=== PATIENT | male | born 1950 | race Caucasian/White ===

== ENCOUNTER 2017-01-14 03:01 | Observation (INO) | payer MEDICARE, OTHER ==
[~2017-01-14] VITALS: Ht 177.8 cm; Wt 97.7 kg
[2017-01-14] VITALS (11 sets, daily range): BP systolic 101–131; BP diastolic 52–78; PULSE 57–62; RESP 14–21; O2SAT 95–99
[~2017-01-14 03:01] MED LIST: ALBU8.5H4 IH; ASPI81TA2 PO; Imitrex PO; MULT-64 PO; VYTORIN PO
--- NOTE | 2017-01-14 03:02 | ED.REPORT ---
HPI-Chest Pain 40 and Over Date of Service Jan 14, 2017 ED Provider: Arnulfo Mckinney MD A 66 year old male with a medical history including CAD, hypertension, polymyalgia rheumatica, and hyperlipidemia s/p porcine aortic valve replacement two years ago presents to the ED via EMS with substernal chest pain onset just prior to arrival, waking him from sleep. The pain is constant with radiation to his back. The patient also reports diaphoresis and shortness of breath. The pain is not pleuritic, it is not positional. He denies nausea or vomiting. EMS found the patient with normal vital signs and administered 50 fentanyl, Nitro x1 , and ASA en route, with complete relief. However, the pain has returned in the ED. He has never had similar symptoms in the past. Nursing Notes Stated Complaint: CHEST PAIN Nursing Notes Reviewed: Yes Allergies: Coded Allergies: No Known Allergies (Unverified Allergy, 12/02/11) Scheduled Aspirin (Aspirin) 81 Mg Tablet 81 MG PO DAILY Atorvastatin (Lipitor) 40 Mg Tablet 40 MG PO DAILY Metoprolol Succinate ER (Metoprolol Succinate ER) 50 Mg Tab.er.24h 50 MG PO DAILY Multivitamin (Multi Vitamin Daily) 1 Each Tablet 1 EACH PO DAILY PredniSONE (PredniSONE) 1 Mg Tab 4 MG PO DAILY Prednisone (PredniSONE) 5 Mg Tab 5 MG PO DAILY Scheduled PRN ([Imitrex]) 1 TAB PO DAILY PRN PRN Miscellaneous Medications Prednisolone Acetate (Prednisolone Acetate) 5 Ml Drops.susp 5 ML OP General Time Seen by MD: 03:01 Chief Complaint Chest pain Hx Obtained From: Patient, EMS Arrived By: Ambulance Sudden in Onset?: Yes Onset Occurred: Just prior to arrival Context of Onset: Sleeping Symptom Duration: Since onset Location: : Chest left: Chest right Quality: Painful Radiation: : Back Severity: Current: Moderate Severity: Maximum: Moderate Associated with: Reports: Diaphoresis, Shortness of Breath, Denies: Fever, Nausea, Vomiting Relieved by: Nitroglycerin - EMS x 1, Prescription meds (Fentanyl and ASA) Context Related History: Reports: Acute coronary syndrome, Anxiety disorder, Heart valve replaced, Hypertension Recent Healthcare: No recent doctor visit Similar Sx Previous: No Past Medical History Past Medical History CAD Hypertension Hyperlipidemia Polymyalgia rheumatica Obstructive sleep apnea Occasional bronchospasm and asthma Anxiety Chronic back pain Tinnitus, chronic Past Surgical History Aortic valve replacement Smoking History Unknown if Ever Smoker Social History Other Social History: Ambulatory Status Independent Review of Systems Constitutional: Denies: Fever Respiratory: Reports: Shortness of breath Cardiovascular: Reports: Chest pain (Substernal) GI: Denies: Nausea, Vomiting Musculoskeletal: Reports: Back pain Skin: Reports Diaphoresis Complete sys rev & neg: except as marked. Physical Exam Initial Vital Signs Vital Signs (First) Date Time Temp Pulse Resp B/P Pulse Ox O2 Delivery O2 Flow Rate FiO2 01/14/17 03:09 36.4 60 20 112/70 95 Room Air Initial VS: Reviewed Head / Eyes: Atraumatic, Normocephalic ENT: Conjunctiva normal, No scleral icterus Extremities: Vascular intact, Neuro intact, No swelling Skin: Warm, Dry, No cyanosis Neurologic: Alert, Oriented, Nonfocal Psychiatric: Mood/affect normal, Behavior normal, Normal thought content General/Constitutional: Awake, Alert, No acute distress Respiratory / Chest: Breath sounds NL, Breath sounds = bilat, No respiratory distress Cardiovascular: Heart rate NL, Regular rhythm, Heart sounds NL No audible click Abdomen: Soft, Non-tender Neck: Supple, Full range of motion, No JVD Interpretation & Diagnostics Lab Results Interpretation Result Diagram: 01/14/17 0302 01/14/17 0302 Test 01/14/17 03:02 01/14/17 03:30 White Blood Count 7.6th/mm3 (3.8-10.1) Red Blood Count 4.51mil/mm3 (4.40-5.80) Hemoglobin 14.9g/dL (13.8-17.2) Hematocrit 41.6% (41.0-50.0) Mean Corpuscular Volume 92.2fL (81-100) Mean Corpuscular Hemoglobin 33.0pg (27.0-35.0) Mean Corpuscular Hemoglobin Concent 35.8% (32.0-37.0) Red Cell Distribution Width 12.1% (12.3-15.4) Platelet Count 169bil/L (150-400) Neutrophils (%) (Auto) 45.5% (40-74) Lymphocytes (%) (Auto) 42.0% (14-46) Monocytes (%) (Auto) 9.5% (4-12) Eosinophils (%) (Auto) 2.4% (0-5) Basophils (%) (Auto) 0.3% (0-3) Hold Purple Top Tube Received (Received) Prothrombin Time 10.7sec (8.1-12.5) Prothromb Time International Ratio 1.00ratio Activated Partial Thromboplast Time 21.5sec (22.8-33.0) Hold Blue Top Tube Received (Received) Sodium Level 142mEq/L (134-144) Potassium Level 3.7mEq/L (3.5-5.2) Chloride Level 100mEq/L (97-108) Carbon Dioxide Level 26mmol/L (18-29) Blood Urea Nitrogen 17mg/dL (8-27) Creatinine 1.19mg/dL (0.76-1.27) Estimat Glomerular Filtration Rate 65mL/min (>59) Glucose Level 125mg/dL (60-99) Calcium Level 9.0mg/dL (8.5-10.1) Magnesium Level 2.1mg/dL (1.6-2.6) Total Bilirubin 1.8mg/dL (0.0-1.2) Aspartate Amino Transf (AST/SGOT) 45U/L (0-50) Alanine Aminotransferase (ALT/SGPT) 37U/L (0-44) Alkaline Phosphatase 42U/L (25-160) Troponin T 0.010ug/L (0.0-0.011) Pro-B-Type Natriuretic Peptide 304.6pg/mL (0-376) Total Protein 6.9g/dL (6.4-8.4) Albumin 4.0g/dL (3.4-5.0) Hold Red Top Tube Received (Received) Hold Ringold Top Tube Received (Received) Digoxin Level 0.3nG/mL (0.9-2.0) Lipase 13U/L (13-60) ECG Interpretation ECG Interpretation: Atrial-ventricular dual-paced complexes rate 64 Time: 03:07 Interpreted by: ED physician X-Ray Chest Interpretation Chest Xray Interpretation: Nothing acute View: Portable, 1 view Interpretation / Wet Read by: Wet read ED physician Re-Eval/Medical Decision Med Decision/Clinical Course 66-year-old presents with a sharp central chest pain and epigastric pain radiating through to his back. He has cardiac history and is admitted for completion of rule out protocol. He also has some elevation of his bilirubin without other explanation and without associated other abnormalities. We will obtain ultrasounds morning. Admitted now for completion of rule out an ultrasound this morning. Pain free at time of transfer to the floor. Cardiac heparin begun. Required IV nitroglycerin initially for control of his pain, along with frequent dosing of morphine. He was switched over to Nitropaste prior to transfer to the floor. His vitals have remained stable. He remains pain-free. Source of Hx: Old records Time of Eval: 05:00 Patient Status: Condition improved Re-Evaluation/Progress Note: Patient rechecked. Discussed with patient x-ray and lab results, diagnosis, and plan for admit. Patient agrees with plan for care and all questions were addressed. Consultation : Referral / Consult Name: Domo Benjamin MD Consulted With: Hospitalist Call Returned at: 05:15 Shoe Dresser: Agrees with eval, Agrees with plan, Accepts admit Counseled Regarding: Diagnosis, Lab results, Need for admission Discharge & Departure Shift Change Sign-Out Response to Therapy: Improved Primary Impression: Chest pain Chest pain type: precordial chest pain Qualified Code: R07.2 - Precordial pain Additional Impression: Hyperbilirubinemia Disposition: ADMITTED TO HOSPITAL Discharge Condition All VS Reviewed: Yes Condition: Improved Referrals: Luis Singh MD (PCP) Crit Care Except Billable Proc Time Spent: 30-74 minutes (thirty minutes) Services Performed: Patient management by me, Time spent at bedside, Reviewing test results, Reviewing imaging, Discussing patient care, Documentation in record, Time with fam/surrogate Scribe Attestation Portions of this note were transcribed by Yael Banuelos. I, Dr. Mckinney, personally performed the history, physical exam, and medical decision-making; I reviewed and confirmed the accuracy of the information in the transcribed note. Signed by: Erik Sherman, 01/14/2017, 05:59 copies to: Luis Singh MD, Christopher W MD Jan 14, 2017 03:02 YAEL BANUELOS Jan 14, 2017 03:26
[2017-01-14] MEDS ORDERED: Nitroglycerin 50 mg/250 mL D5W 50,000 MCG in IV Premix 1 EACH IV ONE (03:14)
[2017-01-14] MEDS ORDERED: 0.9% Sodium Chloride 1,000 ML IV ONE (03:14)
[2017-01-14] MEDS ORDERED: Pantoprazole 4 mg/mL 10 mL Inj IVPUSH ONE (03:15)
[2017-01-14] MEDS ORDERED: Ondansetron 2 mg/mL 2 mL Inj IVPUSH ONE (03:15)
[2017-01-14 03:23] LABS: BASOPHILS % (AUTO) 0.3 % (0-3); EOSINOPHILS % (AUTO) 2.4 % (0-5); MONOCYTES % (AUTO) 9.5 % (4-12); Mean Corpuscular Volume 92.2 fL (81-100); NEUTROPHILS % (AUTO) 45.5 % (40-74); Platelet Count 169 bil/L (150-400)
[2017-01-14 03:51] LABS: Magnesium 2.1 mg/dL (1.6-2.6); TROPONIN T 0.01 ug/L (0.0-0.011)
[2017-01-14] MEDS ORDERED: Heparin 25K Unit/500mL 0.45 NS 25,000 UNIT in IV Premix 1 EACH IV ONE (05:00)
[2017-01-14] MEDS ORDERED: Nitroglycerin 2% 1 Gm Ointment TOPICAL SCH (05:00)
[2017-01-14] MEDS ORDERED: Heparin 5,000 Unit/mL Inj IVPUSH ONE (05:00)
[2017-01-14] MEDS ORDERED: METO-272 PO (05:07)
[2017-01-14] MEDS ORDERED: ASPI-973 PO (05:11)
[2017-01-14] MEDS ORDERED: LIP40 PO (05:11)
[2017-01-14] MEDS ORDERED: PRD1T PO (05:11)
[2017-01-14] MEDS ORDERED: PRD5T PO (05:11)
[2017-01-14] MEDS ORDERED: PRED5DRO6 OP (05:12)
[2017-01-14] MEDS ORDERED: MULT-1018 PO (05:12)
[2017-01-14] MEDS ORDERED: Heparin 5,000 Unit/mL Inj IVPUSH PRN (06:15)
[2017-01-14] MEDS ORDERED: Alum-Mag Hydrox-Simeth 30 mL Suspension PO PRN (06:15)
[2017-01-14] MEDS ORDERED: Ondansetron 2 mg/mL 2 mL Inj IVPUSH PRN (06:15)
[2017-01-14] MEDS ORDERED: Heparin 25K Unit/500mL 0.45 NS 25,000 UNIT in IV Premix 1 EACH IV SCH (06:15)
--- NOTE | 2017-01-14 07:09 | NUR ---
Admit Pt arrived to PCC room 2027 at approx. 0630 from ED via bed; report received from Darcy Arango RN. VSS, tele paced 60s; pt denies pain, dyspnea, or nausea. Heparin gtt initiated at 1000units/hr per cardiac protocol.
[2017-01-14] MEDS ORDERED: IMI25 PO (07:50)
[2017-01-14] MEDS ORDERED: ACET325T51 PO (07:50)
[2017-01-14] MEDS: predniSONE 5 mg Tablet PO SCH (10:03)
[2017-01-14] MEDS: MeTOProlol XL 50 mg ER24 Tablet PO SCH (10:03)
[2017-01-14] MEDS: predniSONE 1 mg Tablet PO SCH (10:03)
--- NOTE | 2017-01-14 10:14 | DRSVH ---
PROCEDURE: X-RAY CHEST ONE VIEW, PORTABLE ([id number]) INDICATIONS: cp TECHNIQUE: One view of the chest was acquired. COMPARISON: [facility], CR, CHEST 1VW (PORTABLE), 02/15/2016, 18:56. [facility], CR, CHEST 2VW, 12/02/2011, 17:25. FINDINGS: Surgical changes and devices: Stable positioning of dual chamber left cardiac pacemaker. Post median sternotomy. Lungs and pleura: No pleural effusions or pneumothorax. Lungs are clear. Mediastinum: Mediastinal contours appear normal. Heart size is normal. Bones and chest wall: No suspicious bony lesions. Overlying soft tissues appear unremarkable. IMPRESSION: No acute cardiopulmonary disease. Dictated by: Juan Francisco Sorensen Ayanna Interpreted: Jose Luis Ruiz MD on 01/14/2017 at 10:13 Transcribed by: EL on 01/14/2017 at 10:13 Approved by: Jose Luis Ruiz M.D. on 01/14/2017 at 17:46
[2017-01-14] MEDS ORDERED: Pantoprazole 40 mg ER24 Tablet PO ONE (10:40)
--- NOTE | 2017-01-14 10:58 | NUR ---
Case Management: LASHAE delivered and explained. Signed original placed in chart. Copy left at bedside. Jadyn Fletcher RN
[2017-01-14 13:14] LABS: APPEARANCE,URINE HAZY (CLEAR,HAZY); COLOR,URINE YELLOW (YELLOW)
[2017-01-14 13:16] LABS: OCCULT BLOOD,URINE NEGATIVE (NEGATIVE); UROBILINOGEN,URINE NORMAL (NORMAL)
--- NOTE | 2017-01-14 13:39 | PCM.HPMED ---
Subjective Date of Service Jan 14, 2017 Primary Provider: Admitting Physician: Domo Benjamin MD Primary Care Physician: Lakshmi Attending Physician: Domo Benjamin MD Admit Status: From the Emergency Department, Admit to [facility] Team Chief Complaint: 66-year-old man with history of coronary artery disease presents with acute chest pain History of Present Illness: Mr. Everett has been in his usual state of health until awakening at approximately 2 AM on the morning of admission. He was awakened by severe midsternal chest pressure with radiation to the back. The pain was continuous, lasting 1.5 hours until relieved by morphine in the emergency department. This was associated with dyspnea and diaphoresis, but no nausea vomiting. There is no radiating pattern there is no exacerbating or palliating factor, other than morphine administered in the emergency department. It has not recurred since the initial episode, now approximately 8 hours later. He has had no antecedent medical problems recently. States that he has been slightly more tired than usual over the past week. Nitroglycerin was not effective. He received 324 mg aspirin. He received nitroglycerin drip and clopidogrel loading. He was placed on heparin. Patient has a history of coronary artery disease, managed by Dr. Bigg Neves at [facility]. The patient and are not able to recall clear details of his cardiac history. He had acute coronary syndrome approximately 3- 4 years ago, resulting in RCA stent placement on vacation in [place]. The patient recalls that his discomfort at that time was an upper sternum chest discomfort with radiation to the neck. 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 There is no CABG at this time. According to Dr. Neves had relief of symptoms after this procedure. Recently he is able to walk at a moderate pace and does so on a near daily basis. He has had no exertional symptoms recently. He has been compliant with medications recently. Review of Systems: Complete 10 system review of systems performed. Significant findings are noted above. He experiences only rare heartburn or GERD, which does not feel like the current complaint. Allergies Coded Allergies: No Known Allergies (Unverified Allergy, Unknown, 01/14/17) Home Medications Aspirin 81 mg per day Atorvastatin 40 mg per day Metoprolol succinate 50 mg per day Prednisone 9 mg per day Sumatriptan when necessary Vitamins. PMH # Coronary artery disease as per history of present illness # Polymyalgia rheumatica - chronic prednisone dosing less than 10 mg per day # Heart block, status post AV pacemaker placement # Obstructive sleep apnea Surgical History Bioprosthetic aVR Family History No premature coronary artery disease Mother at young age due to polio and lung complications Father at 92, generally healthy cancer at end-of-life 7 brothers and sisters - no premature coronary artery disease or dyslipidemia history Social History Occupation: retired, mechanical service specialist Hx Alcohol Use: No Hx Substance Use: No Hx Tobacco Use: No Smoking Status: Unknown if Ever Smoker Living Arrangement: with Family Additional Information Retired 8 years. Daily exercise. Lives with . 2 children alive and well. Healthy habits. Exam Vital Signs Vital Sign - Last Date Time Temp Pulse Resp B/P Pulse Ox O2 Delivery O2 Flow Rate FiO2 01/14/17 11:52 36.7 60 16 131/78 97 Room Air Intake and Output 01/13/17 01/13/17 01/14/17 Cumulative From/Thru 15:00 23:00 07:00 01/14/17 03:50 - 01/14/17 06:39 Intake Total 1000 ml 1000 ml Balance 1000 ml 1000 ml Intake IV Total 1000 ml 1000 ml Exam Constitutional: appears healthy ; no acute distress; vital signs noted Eyes: sclerae anicteric, no conjunctival pallor, ENMT: ears, nose atraumatic; oral mucosa moist Neck: supple, JVD absent Chest: symmetric expansion, no pain with palpation or lesions Resp: auscultation clear, no wheezes, rales or dullness Cardiac: S1, S2, regular, no murmur Abdomen: bowel sounds present, nontender, no organomegaly Musculoskeletal: no joints with acute erythema, swelling Skin and soft tissues: no rash; no pitting edema Peripheral pulses: normal at wrist, feet Lymphatic: no adenopathy cervical Neurological: Cranial Nerves - face symmetric Motor - 5/5 strength, normal tone Coordination - normal movement, no tremor Sensory - light touch intact Psych & Mental Status - oriented and appropriate Lab and Diagnostics Labs Troponin T: 0.01, 0.01 Total bilirubin 1.8, direct bilirubin 0.3 Result Diagram: 01/14/1730101/14/17301 X-Rays, CTs and MRIs PROCEDURE: X-RAY CHEST ONE VIEW, PORTABLE ([id number]) IMPRESSION: No acute cardiopulmonary disease. Dictated by: Juan Francisco Sorensen [facility] Interpreted: Jose Luis Ruiz MD on 01/14/2017 at 10: 13 . 12-lead ECG 01/14 0300 hr: AV paced rhythm, rate 60, intraventricular conduction delay; nondiagnostic Assessment & Plan Mr. Everett is a 66-year-old man with history of coronary artery disease presents with acute chest pain. The current chest pain seems atypical compared to his previous anginal complaint, is not exertional, and was not relieved by nitroglycerin. Current troponins appear to be negative despite more than 1 hour of continuous severe pain. Differential diagnosis is chest pain due to esophageal or reflux disease, dissection of thoracic vessels, coronary ischemia , less likely musculoskeletal or pulmonary. Case was discussed with his primary school attendance secretary Dr. Bigg Neves in [place]. # Chest pain acute. - Okay to discontinue heparin after troponins negative and no recurrent pain. - Chest CT to rule out dissection - Proton pump inhibitor empirically - Nuclear perfusion cardiac scan - Cardiology consultation is not needed at this point; if patient rules out and has little risk perfusion scan he will follow-up with his primary school attendance secretary # Coronary artery disease, chronic. - Continue aspirin and statin - Discuss indication for high-dose statin with patient, although best to defer to primary school attendance secretary # Polymyalgia rheumatica, chronic. - Continue current prednisone dosing # Unconjugated hyperbilirubinemia. Hemogram indices seem normal; and significant hemolysis due to a bioprosthetic valve seems unlikely. Gilbert's disease possible. CODE STATUS is full VTE chemoprophylaxis - patient currently on heparin, low risk if mobilizes quickly Patient is admitted under observation status with expectation evaluation of chest pain may be complete within 24-48 hours. Pain Evaluation: Adequate Pain Control GI Prophylaxis: Not indicated VTE Prophylaxis: Other Resuscitation Status: CPR: Attempt Resuscitation Time spent 60 minutes Paulie Nicholson MD Jan 14, 2017 13:39
--- NOTE | 2017-01-14 14:07 | NUR ---
Pt off floor to CT and stress test
--- NOTE | 2017-01-14 15:44 | DRSVH ---
PROCEDURE: US ABDOMEN INDICATIONS: epigastric/chest pain rad to back, elev bili TECHNIQUE: Real-time scanning was performed of the abdominal and retroperitoneal organs, with image documentatio n. COMPARISON: None. FINDINGS: Liver length: 13.42 cm Gallbladder Wall Thickness: 2.80 mm Spleen length: 12.46 cm Right kidney length: 11.72 cm Left kidney length: 12.54 cm Aorta(Proximal): 2.50 cm Aorta(Mid): 2.03 cm Aorta(Distal): 2.15 cm RCIA: 1.16 cm LCIA: 1.13 cm Liver: Liver is diffusely increased in echogenicity. No focal hepatic abnormalities identified. No rmal hepatic size. Focal fatty sparing present. Gallbladder: Normal gallbladder. Biliary ducts: Intrahepatic bile ducts are non-dilated. Extrahepatic bile duct not visualized. Pancreas: Not visualized. Spleen: Spleen is normal in size and homogeneous in echotexture. Kidneys: Kidneys are normal in size and echotexture. No hydronephrosis or nephrolithiasis. No brown d masses. Aorta: Visualized aorta is normal in caliber at less than 3 cm. Iliacs: Proximal common iliac arteries are normal in caliber at less than 2.5 cm. IVC: Not visualized. Miscellaneous: No free abdominal fluid. IMPRESSION: 1. Increased hepatic echogenicity noted likely related to fatty infiltration of the liver but other s ources of hepatocellular disease cannot be excluded. Recommend clinical correlation. Dictated by: Juan Francisco SANDERSON Interpreted: Dafne June MD on 01/14/2017 at 15:42 Transcribed by: MORAIMA on 01/14/2017 at 15:43 Approved by: Dafne June M.D. on 01/14/2017 at 16:54
--- NOTE | 2017-01-14 16:51 | NUR ---
Pt returned to floor AOX3. Tele reconnected AV paced 60's. at bedside. Saline locked X2. Pt reporting migraine. Pt states he normally takes Sumatriptan 50mg to help alleviate it. I will contact Ela for input. Addendum: 01/14/17 at 1713 by JEFFY BERNABE RN Dr. Nicholson addressed patients migraine report. PRN med entered.
[2017-01-14] MEDS ORDERED: Butalbital-Acet-Caffeine Tablet PO PRN (17:10)
--- NOTE | 2017-01-14 17:22 | DRSVH ---
PROCEDURE: CT ANG CHEST/ABD W/WO CONTRAST ([id number]) INDICATIONS: rule out dissection, PE TECHNIQUE: Precontrast 5 mm thick sections acquired from the lung apices to the iliac crests. After the adminis tration of intravenous contrast, 3 mm thick sections again acquired from the lung apices to the iliac crests. 3-dimensional maximum intensity projection (MIP) oblique sagittal and coronal reformats wer e then acquired, and/or 3-dimensional volume rendering reformats. For radiation dose reduction, the following was used: automated exposure control. COMPARISON: None. FINDINGS: Image quality: Excellent. AORTA: Aorta is normal in caliber without evidence of aneurysmal dilation or dissection. There is minimal ap pearance of scattered small calcifications, consistent with mild atherosclerotic change. CHEST: Lungs and pleura: No acute airspace opacities. No pleural effusions or pneumothorax. Central and p eripheral airways are patent and normal in caliber. No visualized pulmonary embolism. Mediastinum: Heart size is normal. No pericardial effusion. No mediastinal or hilar adenopathy by size criteria. Central pulmonary arteries are normal in size. Esophagus is normal in caliber. No h iatal hernias. Bones and chest wall: No axillary adenopathy by size criteria. Thyroid gland is unremarkable. No s uspicious bony lesions. No vertebral body compression fractures. ABDOMEN: Vasculature: Celiac trunk and mesenteric arteries are patent. Renal arteries are also patent. Solid organs: Liver and spleen are normal in size. Gallbladder is unremarkable. Biliary system is non dilated. Pancreas enhances normally. No adrenal nodules. Both kidneys are normal in size and e nhancement, without hydronephrosis. Peritoneum and bowel: No free fluid or air. Bowel loops are normal in caliber and wall thickness. Nodes and vessels: No retroperitoneal or mesenteric adenopathy by size criteria. Inferior vena cava is normal in morphology. Bones: No suspicious bony lesions. No vertebral body compression fractures. Miscellaneous: No ventral hernias. IMPRESSION: 1. No evidence of pulmonary embolism. No aortic dissection. Dictated by: Dafne June M.D. on 01/14/2017 at 17:17 Approved by: Dafne June M.D. on 01/14/2017 at 17:20
--- NOTE | 2017-01-14 18:34 | NUR ---
Stress Test/Headache Cardiac: Pt denies chest pain. Pt having jaw and facial pain 2/10 this AM, Dr Nicholson aware. Tele: 100% AVPaced 60. Pt down to Nuc-Med for Mibi and abd CT at 14:00. Fioricet given for recurring jaw and head pain this afternoon with good effect. Stress test part two scheduled for tomorrow at 07:00. NPO after midnight. Resp: Pt denies SOB, SPO2 99% on RA. GI/: Pt denies n/v/d, UA sent to lab. Neuro: A&Ox3, TAFOYA
[2017-01-15 04:01] VITALS: BP 121/75; PULSE 60; RESP 14; O2SAT 95
[2017-01-15 05:53] VITALS: PULSE 61
--- NOTE | 2017-01-15 06:21 | NUR ---
Cardiac/NPO Pt tele AV Paced 60s w/ PVCs, pt denied chest pain all night. NPO since midnight. All vitals stable, pt appeared to sleep comfortably between care interventions. Care clustered to promote sleep.
[2017-01-15 07:32] VITALS: BP 132/82; PULSE 60; RESP 16; O2SAT 96
[2017-01-15] MEDS: MeTOProlol XL 50 mg ER24 Tablet PO SCH (07:40)
[2017-01-15] MEDS: predniSONE 1 mg Tablet PO SCH (07:40)
[2017-01-15] MEDS: predniSONE 5 mg Tablet PO SCH (07:40)
[2017-01-15 07:51] VITALS: PULSE 66
--- NOTE | 2017-01-15 09:15 | NUR ---
Social Work: Initial Assessment D: Per EMR review, pt is a 66 year old male admitted for chest pain, r/o ME and hydrobilirubin. Pt is Medicare with [employer] supplement; pt has no LTC insurance or VA benefits. PCP is through [facility]. NOK is Isabella Flores, , . Advanced directives completed but not on file- OXYACETYLENE BURNER requested these from pt's family. Readmit score not entered at this time. OXYACETYLENE BURNER met with pt at bedside. Sw role and contact information provided- see initial assessment. Pt lives in a single-story home in [place]. Pt is I with ADLs, uses no DME and continues to drive. Pt has two steps to enter his home. Pt has never had home health or skilled rehab placements. Pt has no concerns with discharge home once medically stable and states his will transport. Pt has been ambulating I during admission. No sw needs identified at this time. A: [place] who [place]. P: Anticipate pt to discharge home via POV once medically stable; no sw needs identified at this time. OXYACETYLENE BURNER to continue to follow. EULALIO Champion Addendum: 01/15/17 at 0919 by TOM SÁNCHEZ Amended: Links added.
[2017-01-15 11:47] VITALS: BP 117/77; PULSE 60; RESP 16; O2SAT 97
--- NOTE | 2017-01-15 13:30 | DRSVH ---
PROCEDURE: 2 DAY STRESS TEST Rest and pharmacological stress myocardial perfusion SPECT with gated imaging and ejection fraction RADIOPHARMACEUTICAL: 21.6 mCi Tc-99m tetrafosmin IV at rest and 19.9 mCi Tc-99m tetrafosmin IV at pea k effect of pharmacological stress. [id number] was performed. INDICATIONS: CHEST PAIN TECHNIQUE: Radiopharmaceutical was injected at peak stress test, and also at rest. SPECT images wer e obtained. SPECT myocardial perfusion images were displayed in short axis, horizontal long axis, an d vertical long axis views. Gated images were reviewed using [employer] software. COMPARISON: None. CARDIAC STRESS: A pharmacologic stress test was performed under the supervision of an attending staff, using an infus ion of Regadenoson. Hemodynamic data: There is normal blood pressure and heart rate response to pharmacologic stress. Symptoms: The patient denied anginal chest pain. Aminophylline: None EKG: Ventricular paced rhythm. FINDINGS: Raw data: There is good myocardial uptake of radiotracer. No significant motion artifacts. Left ventricle function: Gated images demonstrate normal left ventricular wall thickening. There ap pears to be appropriate augmentation of the LV segments but evidence for significant synchrony second arnoldo to RV pacing. Left ventricle resting end diastolic volume is 116 mL. Left ventricle stress ejec tion fraction is 49%; normal range is above 45%. Myocardial perfusion: There is evidence for apical and inferior perfusion defects on both rest and s tress supine images. The defects appear to be predominantly fixed. However on prone stress imaging th e inferior perfusion defect resolves completely but there is evidence for a persistent apical inferio r perfusion defect, IMPRESSION: Probable normal myocardial perfusion study. In comparison to the previous myocardial perf usion study on November 2011, the findings are quite similar. It was noted during that stress test missael t the finding was consistent with a previous myocardial infarction. However in the presence of normal augmentation but significant synchrony most likely secondary to RV pacing, I suspect apical perfusio n defect is related to apical pacing more so than a true myocardial infarction. Overall the ejection fraction is preserved and has not changed comparison to the previous myocardial perfusion study on 2011. Pharmacological stress EKG is noninterpretable due to ventricular pacing. Clinical correl ation is recommended. Dictated by: Kalen Farfan Jr., M.D. on 01/15/2017 at 12:47 Approved by: Caleb Georges Jr..D. on 01/15/2017 at 13:09
--- NOTE | 2017-01-15 15:21 | PCM.DIMED ---
Discharge Instructions Date of Service Jan 15, 2017 Dates of Hospitalization Jan 14, 2017 at 05:36 Discharge Diagnosis Discharge Diagnosis Acute chest pain, noncardiac Medication Instructions Medications unchanged. Test Results Troponin T: 3 samples over 20 hours all negative. Other blood tests unremarkable. Chest x-ray normal Chest CT and no evidence of blood clot or dissection of blood vessels Abdominal ultrasound with signs of fatty liver but no other pathology Nuclear stress test - no significant ischemic findings, no changes from 2011 Diet Heart Healthy Activity No restrictions Call your provider Chest pain Patient Instructions We are unable to establish a diagnosis for your episode of chest pain. This episode of chest pain not seem to be due to angina pectoris (blockages in coronary arteries) based on negative troponins blood tests, and a nuclear cardiac scan showing no significant changes from prior studies. Did not have a blood clot in your lungs or pneumonia. There is no evidence for problems with the blood vessels in your chest. Other diagnostic possibilities include esophageal spasm. We recommend that she keep track of the pattern of similar chest pains in the future and reports history of primary care physician. While you may come to the emergency department in case of severe symptoms, you may be reassured that mild recurrence of a similar pain is very unlikely to be due to dangerous cardiac or vascular conditions. A copy of our discharge summary will be sent to Dr. Bigg Neves at [facility] in [place]. Follow-up plan Contact you new primary care provider who may advise you further if you need evaluation of your esophagus or other causes of noncardiac chest pain. Follow-up Provider: Bigg Neves MD Follow-up with PCP in: 2 weeks Paulie Nicholson MD Jan 15, 2017 15:21
--- NOTE | 2017-01-15 16:01 | NUR ---
Discharge Pt discharged home today at 1600. Pt off floor via ambulation with all belongings in the company of the nurse and his . Pt was provided with follow up instructions and education materials on heart healthy diet. Pt voiced understanding.
--- NOTE | 2017-01-15 20:00 | PCM.DC.MED ---
Discharge Summary Date of Service Jan 15, 2017 Dates of Hospitalization Date of Hospital Admission Jan 14, 2017 at 05:36 Date of Discharge: Jan 15, 2017 Providers: Admitting Physician: Domo Benjamin MD Primary Care Physician: Lakshmi Attending Physician: Domo Benjamin MD Diagnosis at Time of Discharge Diagnosis at Time of Discharge Acute chest pain, noncardiac Procedures XRay, CTs & MRIs PROCEDURE: X-RAY CHEST ONE VIEW, PORTABLE ([id number]) IMPRESSION: No acute cardiopulmonary disease. Dictated by: Juan Francisco Sorensen RRA Interpreted: Jose Luis Ruiz MD on 01/14/2017 at 10: 13 PROCEDURE: CT ANG CHEST/ABD W/WO CONTRAST ([id number]) IMPRESSION: 1. No evidence of pulmonary embolism. No aortic dissection. Dictated by: Dafne June M.D. on 01/14/2017 at 17:17 . ECG 12 Lead 01/14 0300 hr: AV paced rhythm, rate 60, intraventricular conduction delay; nondiagnostic Other Diagnostics PROCEDURE: 2 DAY STRESS TEST Rest and pharmacological stress myocardial perfusion SPECT with gated imaging and ejection fraction RADIOPHARMACEUTICAL: 21.6 mCi Tc-99m tetrafosmin IV at rest and 19.9 mCi Tc-99m tetrafosmin IV at peak effect of pharmacological stress. Bam-rlx-[id number] was performed. INDICATIONS: CHEST PAIN TECHNIQUE: Radiopharmaceutical was injected at peak stress test, and also at rest. SPECT images were obtained. SPECT myocardial perfusion images were displayed in short axis, horizontal long axis, and vertical long axis views. Gated images were reviewed using [employer] software. COMPARISON: None. CARDIAC STRESS: A pharmacologic stress test was performed under the supervision of an attending staff, using an infusion of Regadenoson. Hemodynamic data: There is normal blood pressure and heart rate response to pharmacologic stress. Symptoms: The patient denied anginal chest pain. Aminophylline: None EKG: Ventricular paced rhythm. FINDINGS: Raw data: There is good myocardial uptake of radiotracer. No significant motion artifacts. Left ventricle function: Gated images demonstrate normal left ventricular wall thickening. There appears to be appropriate augmentation of the LV segments but evidence for significant synchrony secondary to RV pacing. Left ventricle resting end diastolic volume is 116 mL. Left ventricle stress ejection fraction is 49%; normal range is above 45%. Myocardial perfusion: There is evidence for apical and inferior perfusion defects on both rest and stress supine images. The defects appear to be predominantly fixed. However on prone stress imaging the inferior perfusion defect resolves completely but there is evidence for a persistent apical inferior perfusion defect, IMPRESSION: Probable normal myocardial perfusion study. In comparison to the previous myocardial perfusion study on November 2011, the findings are quite similar. It was noted during that stress test that the finding was consistent with a previous myocardial infarction. However in the presence of normal augmentation but significant synchrony most likely secondary to RV pacing, I suspect apical perfusion defect is related to apical pacing more so than a true myocardial infarction. Overall the ejection fraction is preserved and has not changed comparison to the previous myocardial perfusion study on November 2011. Pharmacological stress EKG is noninterpretable due to ventricular pacing. Clinical correlation is recommended. Dictated by: Kalen Farfan Jr., M.D. on 01/15/2017 at 12:47 . Brief History History of Present Illness (per admission note): Mr. Everett has been in his usual state of health until awakening at approximately 2 AM on the morning of admission. He was awakened by severe midsternal chest pressure with radiation to the back. The pain was continuous, lasting 1.5 hours until relieved by morphine in the emergency department. This was associated with dyspnea and diaphoresis, but no nausea vomiting. There is no radiating pattern there is no exacerbating or palliating factor, other than morphine administered in the emergency department. It has not recurred since the initial episode, now approximately 8 hours later. He has had no antecedent medical problems recently. States that he has been slightly more tired than usual over the past week. Nitroglycerin was not effective. He received 324 mg aspirin. He received nitroglycerin drip and clopidogrel loading. He was placed on heparin. Patient has a history of coronary artery disease, managed by Dr. Bigg Neves at [facility]. The patient and are not able to recall clear details of his cardiac history. He had acute coronary syndrome approximately 3- 4 years ago, resulting in RCA stent placement on vacation in [place]. The patient recalls that his discomfort at that time was an upper sternum chest discomfort with radiation to the neck. 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 There is no CABG at this time. According to Dr. Neves had relief of symptoms after this procedure. Recently he is able to walk at a moderate pace and does so on a near daily basis. He has had no exertional symptoms recently. He has been compliant with medications recently. . Hospital Course # Chest pain acute. No recurrence of symptoms during 24 hours of observation. EKG was nondiagnostic due to biventricular pacing. Troponins were negative, despite 1.5 hours of continuous severe pain. Initially treated with aspirin and heparin which was discontinued. There is no evidence of vascular dissection , pneumonia, pleuritis process, or musculoskeletal source. The patient reports prior episodes of acid reflux, which were symptomatically different. Regadeneson nuclear cardiac perfusion scan was performed, and revealed no likely reversible ischemic explanation, although a 2 day study was required due to baseline perfusion abnormalities. - Leading clinical diagnosis is esophageal spasm; does not seem likely GERD related; no gastrointestinal medications were initiated given the single episode without recurrence. - Patient is advised to monitor recurrence of these symptoms and report to primary care provider, or present to emergency department for severe symptoms. # Coronary artery disease, chronic. - Continue aspirin and statin # Polymyalgia rheumatica, chronic. - Continue current prednisone dosing # Unconjugated hyperbilirubinemia. Hemogram indices seem normal; and significant hemolysis due to a bioprosthetic valve seems unlikely. Gilbert's disease possible. Exam Vital Signs (Last) Date Time Temp Pulse Resp B/P Pulse Ox O2 Delivery O2 Flow Rate FiO2 01/15/17 11:47 36.8 60 16 117/77 97 Room Air Exam General: Elderly appearing man in no acute distress HEENT: sclerae anicteric, oral mucosa moist Neck: no JVD Chest: clear to auscultation Cardiac: S1S2, no murmur Abdomen: BS normal, non-tender Extremities: No pitting edema Neuro: A&O, cranial nerves symmetric, motor strength 5/5, coordination normal Test 01/14/17 03:02 01/14/17 03:30 01/14/17 10:00 01/14/17 11:50 White Blood Count 7.6th/mm3 (3.8-10.1) Red Blood Count 4.51mil/mm3 (4.40-5.80) Hemoglobin 14.9g/dL (13.8-17.2) Hematocrit 41.6% (41.0-50.0) Mean Corpuscular Volume 92.2fL (81-100) Mean Corpuscular Hemoglobin 33.0pg (27.0-35.0) Mean Corpuscular Hemoglobin Concent 35.8% (32.0-37.0) Red Cell Distribution Width 12.1% (12.3-15.4) Platelet Count 169bil/L (150-400) Neutrophils (%) (Auto) 45.5% (40-74) Lymphocytes (%) (Auto) 42.0% (14-46) Monocytes (%) (Auto) 9.5% (4-12) Eosinophils (%) (Auto) 2.4% (0-5) Basophils (%) (Auto) 0.3% (0-3) Hold Purple Top Tube Received (Received) Prothrombin Time 10.7sec (8.1-12.5) Prothromb Time International Ratio 1.00ratio Hold Blue Top Tube Received (Received) Magnesium Level 2.1mg/dL (1.6-2.6) Direct Bilirubin 0.3mg/dL (0.0-0.3) Aspartate Amino Transf (AST/SGOT) 45U/L (0-50) Alanine Aminotransferase (ALT/SGPT) 37U/L (0-44) Alkaline Phosphatase 42U/L (25-160) Pro-B-Type Natriuretic Peptide 304.6pg/mL (0-376) Total Protein 6.9g/dL (6.4-8.4) Albumin 4.0g/dL (3.4-5.0) Hold Red Top Tube Received (Received) Hold [place] Top Tube Received (Received) Digoxin Level 0.3nG/mL (0.9-2.0) Lipase 13U/L (13-60) Urine Color Yellow (YELLOW) Urine Appearance Hazy (CLEAR,HAZY) Urine pH 6.0 (5.0-8.0) Urine Specific [place] 1.025 (1.003-1.035) Urine Protein Negativemg/dL (NEG,TRACE) Urine Glucose (UA) Negativemg/dL (NEGATIVE) Urine Ketones Negativemg/dL (NEGATIVE) Urine Occult Blood Negative (NEGATIVE) Urine Nitrite Negative (NEGATIVE) Urine Bilirubin Negative (NEGATIVE) Urine Urobilinogen Normalmg/dL (NORMAL) Urine Leukocyte Esterase Negative (NEGATIVE) Urine RBC 0-2/hpf (0-2) Urine WBC 0-5/hpf (0-5) Urine Epithelial Cells Occasional/hpf (NONE-MOD) Urine Crystals None seen (NONE SEEN) Urine Bacteria None/hpf (NONE-FEW) Urine Hyaline Casts None/lpf (NONE) Urine Granular Casts None seen (NONE SEEN) Urine Waxy Casts None seen (NONE SEEN) Urine Red Blood Cell Casts None seen (NONE SEEN) Urine White Blood Cell Casts None seen (NONE SEEN) Urine Mucus Present (None Seen) Urine Trichomonas None seen (NONE SEEN) Urine Yeast None (NONE SEEN) Urinalysis Comment None Urine Culture Reflexed Not indicated Activated Partial Thromboplast Time 59.8sec (22.8-33.0) Test 01/14/17 20:00 01/15/17 04:00 Troponin T < 0.010ug/L (0.0-0.011) Sodium Level 141mEq/L (134-144) Potassium Level 4.1mEq/L (3.5-5.2) Chloride Level 103mEq/L (97-108) Carbon Dioxide Level 26mmol/L (18-29) Blood Urea Nitrogen 13mg/dL (8-27) Creatinine 0.74mg/dL (0.76-1.27) Estimat Glomerular Filtration Rate 112mL/min (>59) Glucose Level 120mg/dL (60-99) Calcium Level 8.7mg/dL (8.5-10.1) Total Bilirubin 2.2mg/dL (0.0-1.2) Discharge Medications Discharge Medications Aspirin (Aspirin) 81 Mg Tablet 81 MG PO DAILY (Reported) Atorvastatin (Lipitor) 40 Mg Tablet 40 MG PO DAILY (Reported) Metoprolol Succinate ER (Metoprolol Succinate ER) 50 Mg Tab.er.24h 50 MG PO DAILY (Reported) Multivitamin (Multi Vitamin Daily) 1 Each Tablet 1 EACH PO DAILY (Reported) PredniSONE (PredniSONE) 1 Mg Tab 4 MG PO DAILY (Reported) Prednisone (PredniSONE) 5 Mg Tab 5 MG PO DAILY (Reported) Sumatriptan (Imitrex) 25 Mg Tablet 50 MG PO QID (Reported) As needed Acetaminophen (Acetaminophen) 325 Mg Tablet 500 MG PO Q4H PRN PRN For Pain ( Reported) Miscellaneous Medications Prednisolone Acetate (Prednisolone Acetate) 5 Ml Drops.susp 5 ML OP (Reported) Additional med instructions Medications unchanged. Followup Plan Follow-up plan Contact you new primary care provider who may advise you further if you need evaluation of your esophagus or other causes of noncardiac chest pain. Discharge Diet: Heart Healthy Discharge Activity: No restrictions Patient Instructions We are unable to establish a diagnosis for your episode of chest pain. This episode of chest pain not seem to be due to angina pectoris (blockages in coronary arteries) based on negative troponins blood tests, and a nuclear cardiac scan showing no significant changes from prior studies. Did not have a blood clot in your lungs or pneumonia. There is no evidence for problems with the blood vessels in your chest. Other diagnostic possibilities include esophageal spasm. We recommend that she keep track of the pattern of similar chest pains in the future and reports history of primary care physician. While you may come to the emergency department in case of severe symptoms, you may be reassured that mild recurrence of a similar pain is very unlikely to be due to dangerous cardiac or vascular conditions. A copy of our discharge summary will be sent to Dr. Bigg Neves at [facility] in [place]. Follow-up Provider: Bigg Neves MD Follow-up with PCP in: 2 weeks Time spent 35 minutes copies to: Bigg Neves MD, Jeffrey W MD Jan 15, 2017 15:22
== END 2017-01-15 16:00 | disposition home or self-care (01) ==
LOC: SED 03:01 → INTOOBSV 05:36 → PCC 05:36
PROVIDERS: ADMIT Hospitalist; ATTEND Internal Medicine
DX: R07.89 Other chest pain (principal); I25.10 Atherosclerotic heart disease of native coronary artery without angina pectoris; M35.3 Polymyalgia rheumatica; E80.6 Other disorders of bilirubin metabolism; R10.13 Epigastric pain; I10 Essential (primary) hypertension; E78.5 Hyperlipidemia, unspecified; F41.9 Anxiety disorder, unspecified; G47.33 Obstructive sleep apnea (adult) (pediatric); J45.909 Unspecified asthma, uncomplicated; Z79.82 Long term (current) use of aspirin; Z95.0 Presence of cardiac pacemaker
CPT/HCPCS: 36415; 71010; 71275; 74175; 76700; 78452; 80048; 80053; 80162; 81000; 82247; 82274; 83690; 83735; 83880; 84484; 85025; 85610; 85730; 93005; 93017; 96361; 96374; 96375; 99291; A9502; G0378; J1644; J2270; J2405; J2785; J7030; J7512; Q9967